=== PATIENT | male | born 1945 | race Caucasian/White ===

== ENCOUNTER 2023-04-25 18:29 | Emergency (ER) | payer MEDICARE, BC ==
[~2023-04-25] VITALS: Ht 182.9 cm; Wt 93.0 kg
[~2023-04-25 18:29] MED LIST: CHOLECALCIFEROL 4000 UNIT; CITRACAL; DILANTIN100 MG; FLOMAX0.4 MG PO; PHENYTOIN; TRAVATAN EYE DROPS; VITAMIN K; Z.0.ACTONEL35 MG; Z.0.LOSARTAN POTASS2; [UNRECOGNIZED DRUG - OTHER] PO
[2023-04-25 19:10] VITALS: O2SAT 98
== END 2023-04-25 21:16 | disposition home or self-care (01) ==
LOC: ER 18:47
DX: M25.572 Pain in left ankle and joints of left foot (principal); W18.39XA Other fall on same level, initial encounter; Y92.89 Other specified places as the place of occurrence of the external cause; I10 Essential (primary) hypertension; E78.5 Hyperlipidemia, unspecified; G40.909 Epilepsy, unspecified, not intractable, without status epilepticus; Z85.46 Personal history of malignant neoplasm of prostate; Z95.5 Presence of coronary angioplasty implant and graft
CPT/HCPCS: 99283